=== PATIENT | male | born 1970 | race Caucasian/White ===

== ENCOUNTER 2017-03-07 11:38 | Emergency (ER) | payer OTHER ==
[~2017-03-07] VITALS: Ht 165.1 cm; Wt 77.1 kg
[2017-03-07] MEDS ORDERED: NAPROSYN500 MG PO (12:31)
[2017-03-07] MEDS ORDERED: NORCO 5-325 TA1 EACH PO (12:31)
[2017-03-07 12:51] VITALS: BP 126/78
== END 2017-03-07 12:52 | disposition home or self-care (01) ==
LOC: ER 11:38
DX: S20.219A Contusion of unspecified front wall of thorax, initial encounter (principal); S09.90XA Unspecified injury of head, initial encounter; W22.09XA Striking against other stationary object, initial encounter; Y93.89 Activity, other specified; Y92.89 Other specified places as the place of occurrence of the external cause; Y99.9 Unspecified external cause status